=== PATIENT | male | born 1955 | race Caucasian/White ===

== ENCOUNTER 2020-10-16 16:36 | Observation (INO) | payer MEDICARE, MEDICAID, SELFPAY ==
[2020-10-16] VITALS (7 sets, daily range): BP systolic 137–183; BP diastolic 83–112; PULSE 76–130; RESP 16–18; TEMP 36.6–36.8; O2SAT 95–97; BMI 24.9
--- NOTE | ~2020-10-16 | CT_ITS ---
EXAMINATION: CT brain wo con DATE: 10/16/2020 17:45 INDICATION: Syncope post fall TECHNIQUE: Computed tomography (CT) of the head was performed without intravenous contrast. Sagittal and coronal reconstructions were performed. The mA was adjusted according to patient size. Iterative reconstruction technique was employed. The dose-length product was 605.33 mGy-cm. COMPARISON: None FINDINGS: No fracture. Encephalomalacia at the anterior aspect of the bilateral frontal lobes and anterior left temporal lobe which could represent sequela of chronic infarcts or trauma. No acute intracranial hem orrhage, acute infarction or abnormal extra axial fluid collection. There is mild scattered white mat ter hypoattenuation consistent with chronic small vessel ischemic disease. Ventricles are normal and symmetric. No mass/mass effect. The orbits, paranasal sinuses and right mastoid air cells are normal. That is post left mastoidectomy. The left external auditory canal is occluded IMPRESSION: 1. No fracture or acute intracranial process. 2. Encephalomalacia in the anterior bilateral frontal lobes and anterior left temporal lobe which cou ld represent sequela of prior infarcts or trauma. 3. Mild scattered white matter hypoattenuation consistent with chronic small vessel ischemic disease. Reviewed, dictated and finalized at location A. CTOR OF INFECTION CONTROL IMPRESSION: 1. No fracture or acute intracranial process. 2. Encephalomalacia in the anterior bilateral frontal lobes and anterior left t emporal lobe which could represent sequela of prior infarcts or trauma. 3. Mild scattered white matter hypoattenuation consistent with chronic small ve ssel ischemic disease.
--- NOTE | ~2020-10-16 | XR_ITS ---
EXAMINATION: XR thoracic spine 3V, XR lumbar spine 2-3V DATE: 10/16/2020 18:04 INDICATION: Generalized upper and lower back pain post fall TECHNIQUE: 1. AP, lateral and lateral swimmer's views of the thoracic spine were obtained. 2. AP, lateral and coned-down lateral lumbosacral views of the lumbar spine were obtained. COMPARISON: None. FINDINGS: Thoracic spine: Mild thoracic kyphosis. Chronic appearing mild anterior wedging at T8 and T10 and, both with approxim ately 20% anterior vertebral body height loss. Moderate disc height loss at multiple levels between T 2-T3 and T8-T9 as well as at T11-T12. Mild disc height loss at the remaining thoracic levels. Lumbar spine: 4 mm anterolisthesis L3 on L4. Lumbar vertebral body heights are normal. Moderate disc height loss at L3-L4. Mild disc height loss at L4-L5. Mild to moderate lower lumbar predominant facet osteoarthriti s. Sacral arches are intact. Mild bilateral sacral iliac osteoarthritis. IMPRESSION: 1. Age-indeterminate but chronic appearing T8 and T10 compression fractures with 20% anterior vertebr al body height loss. 2. Moderate thoracic and lumbar spondylosis. Reviewed, dictated and finalized at location A. TENANCE TRUCK DRIVER IMPRESSION: 1. Age-indeterminate but chronic appearing T8 and T10 compression fractures wit h 20% anterior vertebral body height loss. 2. Moderate thoracic and lumbar spondylosis.
--- NOTE | ~2020-10-16 | XR_ITS ---
EXAMINATION: XR chest 1V DATE: 10/16/2020 18:05 INDICATION: Syncope post fall TECHNIQUE: frontal view of the chest was obtained. COMPARISON: None FINDINGS: The lungs are clear with no focal airspace opacities, pulmonary edema, pleural effusion or pneumothor ax. The cardiomediastinal silhouette is normal. Mild to moderate degenerative skeletal changes in the spine and right glenohumeral joint. IMPRESSION: 1. No acute cardiopulmonary disease. Reviewed, dictated and finalized at location A. ICE CENTER REPRESENTATIVE
--- NOTE | ~2020-10-16 | US_ITS ---
EXAMINATION: US soft tissue head and neck DATE: 10/17/2020 12:52 INDICATION: Anterior neck lipoma TECHNIQUE: Multiple grayscale and Doppler ultrasound images of the region of concern at the anterior neck were obtained. COMPARISON: CT dated 10/16/2020 FINDINGS: Large soft tissue mass centered just to the right of midline at the anterior neck which is larger sheryl n the field of view of imaging by ultrasound, which is >7 cm in AP and medial to lateral dimensions. The mass measures up to 3.3 cm in maximal thickness. This corresponds in approximate size and locatio n to the large lipoma seen at the anterior neck on prior CT. IMPRESSION: 1. Large mass centered just to the right of midline at the anterior neck corresponding to a 9.1 x 7.4 x 3.8 cm lipoma on prior CT . Reviewed, dictated and finalized at location A. IRATORY EQUIPMENT ASSISTANT IMPRESSION: 1. Large mass centered just to the right of midline at the anterior neck corres ponding to a 9.1 x 7.4 x 3.8 cm lipoma on prior CT .
--- NOTE | ~2020-10-16 | CT_ITS ---
EXAMINATION: CT cervical spine wo con DATE: 10/16/2020 17:45 INDICATION: Fall with syncope, headache and neck pain TECHNIQUE: Computed tomography (CT) of the cervical spine was performed without intravenous contrast. Automated exposure control and iterative reconstruction technique were employed. The dose-length pro duct was 429.68 mGy-cm. COMPARISON: None FINDINGS: Alignment is normal. Vertebral body heights are normal. No fractures. Moderate disc height loss at C4 -C5, C5-C6 and C6-C7. Mild disc height loss at C3-C4 and T1-T2. Combination of disc bulges and computer technical specialist ior disc osteophyte complexes resulting in mild central canal stenosis from C3-C4 through C6-C7. Meghan re facet osteoarthritis resulting in moderate central canal stenosis on the left at C3-C4. Mild neura l foraminal stenosis at additional levels on the left and right resulting from a severe uncovertebral and facet osteoarthritis. Atherosclerotic calcification is at the bilateral carotid bulbs. 9.1 x 3.8 x 7.4 cm macroscopic fat attenuation lipoma in the anterior neck. The underlying thyroid gland is un remarkable. Visualized airway and apices of lungs are clear. IMPRESSION: 1. Moderate cervical spondylosis. No acute osseous abnormality. 2. 9.1 x 3.8 x 7.4 cm lipoma at the anterior neck. Reviewed, dictated and finalized at location A. L PRESS OPERATOR
--- NOTE | 2020-10-16 17:01 | ECG_ITS ---
Measurements Intervals [place] Rate: 122 P: 19 OR: 155 QRS: 11 QRSD: 101 T: 29 QT: 307 QTc: 439 Interpretive Statements SINUS TACHYCARDIA DELAYED PRECORDIAL R/S TRANSITION BORDERLINE ST-T WAVE ABNORMALITY- INF/HIGH LAT LEADS ABNORMAL ECG Electronically Signed On 10-16-2020 20:55:50 STEM ROLLER OR CRUSHER OPERATOR by Darius Zapata D.O.
--- NOTE | 2020-10-16 17:14 | ED.GENADULT ---
HPI - General Adult General Chief complaint: Fall Stated complaint: fall -back pain Time Seen by Provider: 10/16/20 16:47 Source: patient and family Limitations: no limitations History of Present Illness HPI narrative: Patient 64 years old white male presented to the ED with syncope. Patient lives alone, working in the kitchen, woke up on the floor. Was confused, tried to get up and was unsteady, his daughter called him on the phone at that time and found the patient is confused and disoriented. She is telling me patient usually get seizure and can have similar confusion and disorientation like this. Currently patient complaining of headache, neck pain, back pain. He denies any fever, chills, nausea, vomiting, COVID-19 infection or exposure to anybody with COVID-19. 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 Patient does not take medicine at home. Last seizure possible months ago, last time was seen by a physician years ago, history of goiter which is getting bigger, patient's daughter telling me that patient had history of absent seizure which usually does not blackout with it. Patient is telling me, sometimes he blacked out with seizure.. Patient is telling me that if his daughter did not call him, he would not come to the emergency room.. Related Data Home Medications Medication Instructions Recorded Confirmed No Home Medications 10/16/20 10/16/20 Allergies Allergy/AdvReac Type Severity Reaction Status Date / Time No Known Allergies Allergy Verified 10/16/20 16:58 Review of Systems Review of Systems: Narrative: CONSTITUTIONAL: Denies fever, chills, or sweats. EYES: Denies visual changes, redness, or discharge. ENT: Denies rhinorrhea, congestion, sore throat, or otalgia. CARDIOVASCULAR: Denies chest pain, palpitations, or edema. RESPIRATORY: Denies cough or dyspnea. GASTROINTESTINAL: Denies abdominal pain, nausea, vomiting, or diarrhea. GENITOURINARY: Denies dysuria or hematuria. SKIN: Denies rash or itching. MUSCULOSKELETAL: Denies back pain, joint pain, or myalgia. NEUROLOGIC: Denies headache, numbness, or weakness. PSYCHIATRIC: Denies anxiety or depression. [facility] Past Medical History Medical History (Updated 10/16/20 @ 17:28 by Dennis Fernandez MD) Goiter Social History Social History (Updated 10/16/20 @ 17:24 by Dennis Fernandez MD) Social History: Patient smokes, uses marijuana, denies drinking Smoking status: Current every day smoker Exam Narrative: Exam Narrative: General appearance: Well-developed, well-nourished Skin: Normal color Head: Normocephalic, nontraumatic Eyes: Clear conjunctiva ENT: Oropharynx normal, ears normal, nose normal, large neck mass anteriorly, firm in consistency Neck: Supple, nontender Chest and respiratory: Airway patent, no respiratory distress, no accessory muscle use Heart: Regular rate/rhythm Abdomen: Soft, nontender, no organomegaly, quiet bowel sounds Vascular: Normal peripheral pulses, normal capillary refill. Musculoskeletal: Severe pain along the thoracic and lumbar spine, no bruises, no deformity. Neurologic: Alert and oriented ?3, ARMATURE VARNISHER is normal as tested, no gross motor deficit Course Course Emergency Course: Stable Consultations Consultation #1: Dr. Pinon Date: 10/16/20 Time: 18:39 Vital Signs Vital signs: Vital Signs Temperature 36.6 C 10/16/20 16:32 Pulse Rate 120 H 10/16/20 16:32 Respiratory Rate 18 10/16/20 16:32 Blood Pressure 183/112 H 10/16/20 16:32 Pulse Oximetry 95 10/16/20 16:32 Temperature 36.6 C 10/16/20 16:32 Puls
[2020-10-16 17:38] LABS: Basophils Absolute Auto 0.1 K/mm3 (0.0-0.1); Basophils Percent Auto 0.4 % (0.2-1.2); Eosinophils Percent Auto 0.2 % (0-4.4); Hematocrit 46.2 % (42.0-52.0); Hemoglobin 15.7 g/dL (14.0-18.0); Immature Granulocyte Absolute 0.08 K/mm3 (0.00-0.031); Immature Granulocyte Percent A 0.6 % (0-0.5); Lymphocytes Absolute Auto 1.21 K/mm3 (0.9-3.2); Lymphocytes Percent Auto 8.3 % (18.3-44.2); Mean Corpuscular Volume 91.3 fl (80-100); Mean Platelet Volume 9.5 fl (7.4-10.4); Monocytes Percent Auto 6.8 % (2.6-8.5); Neutrophils Absolute Auto 12.1 K/mm3 (1.3-6.7); Neutrophils Percent Auto 83.7 % (45.5-73.1); Platelet Count Result 295 k/mm3 (150-375); Red Blood Count 5.06 M/mm3 (4.6-6.20); Red Cell Distribution Width 13.2 % (11.5-14.5); White Blood Count 14.5 K/mm3 (4.5-10.0)
[2020-10-16 17:46] LABS: Partial Thromboplastin Time 21.3 SECONDS (22.3-36.8)
[2020-10-16 17:50] LABS: INR 0.9; Prothrombin Time 12.8 Seconds (11.1-14.7)
[2020-10-16 17:52] LABS: Alanine Aminotransferase 42 U/L (4-50); Albumin Level 4.4 g/dL (3.5-5.1); Alkaline Phosphatase 60 U/L (38-126); Anion Gap 9 mmol/L (8-16); Aspartate Amino Transferase 42 U/L (17-59); Bilirubin,Total 0.4 mg/dL (0.2-1.3); Blood Urea Nitrogen 18 mg/dL (9-20); Calcium 9.3 mg/dL (8.4-10.2); Carbon Dioxide 25 mmol/L (22-30); Chloride 104 mmol/L (98-107); Estimated CRCL calculation 85 ml/min; Estimated Glomerular Filt Rate > 60; Glucose 216 mg/dL (75-110); Magnesium 2.3 mg/dL (1.6-2.3); Potassium 3.9 mmol/L (3.4-5.0); Sodium 138 mmol/L (137-145)
[2020-10-16 18:03] LABS: Troponin I 0.014 ng/mL (0.000-0.034)
[2020-10-16] MEDS: levETIRAcetam 1000MG/NACL100ML 1,000 MG/100 ML BAG 400 MG IVPB (18:15)
[2020-10-16] MEDS: ONDANSETRON INJ 4 MG/2 ML VIAL IV PUSH (18:20)
[2020-10-16] MEDS: MORPHINE SULFATE (*CRX) 4 MG/ML INJ IV PUSH (18:20)
[2020-10-16 18:31] LABS: Add Urine Microscopic? YES; Appearance Urine Cloudy (Clear); Bilirubin Urine Negative (Negative); Blood Urine Negative (Negative); Color Urine Yellow (Yellow); Glucose Urine UA 1+ mg/dL (Negative); Hyaline Casts Urine 20-29 /lpf; Ketones Urine Negative (Negative); Leukocyte Esterase Ur Negative LEU/UL (Negative); Mucus Urine Rare /lpf; Nitrate Urine Negative (Negative); Protein Urine 1+ mg/dL (Negative); RBC Urine 0-2 /hpf (0-2); Specific Grav Ur 1.018 (1.001-1.035); Urobilinogen Urine Negative mg/dL (<2.0)
[2020-10-16 18:43] LABS: Amphetamine Screen Urine Negative (Negative); Barbiturate Screen Urine Negative (Negative); Benzodiazepines Screen Urine Negative (Negative); Cannabinoid Screen Urine Positive (Negative); Cocaine Screen Urine Negative (Negative); Methadone Screen Urine Negative (Negative); Opiate Screen Urine Negative (Negative); Phencyclidine Screen Urine Negative (Negative)
--- NOTE | 2020-10-16 21:05 | PM.IMHP ---
H&P: HPI History of Present Illness Date/Time: 10/16/20 21:05 Chief Complaint: Acute syncope Narrative: This is a pleasant 64 year old male with known seizure disorder who presented to the hospital today after passing out in his kitchen. The patient believes that he suffered a grand mal seizure today while standing in his kitchen. He remembers hitting his back on the sink and then passing out. He denies any tongue biting as he has no teeth but did lose urine. He commonly has absence seizures every month or so and is not on any antiepileptic medications. The patient has had URI symptoms recently and believes that he has had sinusitis. He does not take any home medications. Today he denies any headache, neck pain, blurry vision, double vision, chest pain, shortness of breath, coughing, nausea, vomiting, abdominal pain, dysuria, hematuria, diarrhea, rectal bleeding, numbness, tingling, or focal weakness. He is known to have epilepsy since having decompression surgery of his left seventh cranial nerve in 1975. The patient was evaluated in the ER tonight and Brain CT was negative for any acute intracranial pathology. ER provider has consulted Neurology, Dr. Pinon and the patient has been loaded with IV Keppra. Review of Systems Review of Systems: All systems reviewed & are unremarkable except as noted in HPI and below PMFSH Past Medical History Medical History Compression fracture of T10 vertebra Compression fracture of T8 vertebra Goiter History of absence seizures Surgical History Surgical History H/O brain surgery Social History Social History Social History: Patient smokes, uses marijuana, denies drinking Smoking packs per day: 1 Smoking cigarettes per day: 20.0 Years smoked: 45 Smoking pack-years: 45.00 Smoking status: Current some day smoker Tobacco type: cigarettes Alcohol intake: never Substance use: never Substance use type: does not use Gender identity (if verbalized by the patient): Male Spiritual care concerns: No Meds Home Medications and Allergies Home Medications Medication Instructions Recorded Confirmed Type levetiracetam 500 mg PO Q12H 90 Days #180 tablet 10/17/20 Rx tramadol 50 mg PO Q6H PRN #10 tablet 10/17/20 Rx Allergies Allergy/AdvReac Type Severity Reaction Status Date / Time No Known Allergies Allergy Verified 10/16/20 16:58 Vital Signs Vital Signs - 24 hr 10/16/20 16:32 10/16/20 17:28 10/16/20 18:15 Temperature 36.6 C Pulse Rate 120 H 130 H 117 H Respiratory Rate 18 18 Blood Pressure 183/112 H 158/105 H 168/106 H Pulse Oximetry 95 96 10/16/20 18:50 10/16/20 20:05 Temperature 36.6 C Pulse Rate 94 Respiratory Rate 18 Blood Pressure 161/93 H Pulse Oximetry 95 Exam Const: General: cooperative, no acute distress, alert and awake Nutritional Appearance: well nourished Orientation/consciousness: patient oriented x3 HENMT: Head: normal to inspection General nose exam: Normal external nose present Face and sinus: normal facial exam Mouth: Yes Normal oral and palatal mucosa present and Yes oropharynx normal Eyes: Pupils: Equal, round and reactive pupils present EOM: EOMs intact bilaterally Neck: Neck: supple and no JVD Thyroid: diffusely enlarged Lymphatic: lymphadenopathy not noted Resp: Effort & Inspection: normal respiratory effort Auscultation: clear to auscultation bilaterally Cardio: Rate: regular rate Rhythm: regular rhythm Heart sounds: no murmurs GI: Inspection: normal to inspection Auscultation: normal bowel sounds Skin: General skin exam: normal color and no rashes or lesions noted Neuro: General: patient oriented x3 Cranial nerves: Yes CN's II-XII intact bilaterally and Yes Equal, round and reactive pupils present Speech: normal speech Motor exa
--- NOTE | 2020-10-16 22:08 | ADMGEN ---
This patient, Jason Washington, was admitted to 2 Medical Room 256-. Patient/family oriented to hospital policies and general routines including ID bracelet, bed and alarms, visiting hours, pain management, procedures, bathroom and other care routines, personal items, smoking policy, room service/diet, and visiting hours. Information on how to activate the Rapid Response Team has been discussed. Patient/Family are encouraged to report perceived risks to care and to ask questions if they do not understand what they are told or what they should do.
[2020-10-17] VITALS: PULSE 68
[2020-10-17] MEDS: SODIUM CHLORIDE 0.9% IV 1,000 ML 100 ML IV CONT ×2 (01:50→11:48)
[2020-10-17 04:00] VITALS: PULSE 63
[2020-10-17 05:40] VITALS: BP 133/67; PULSE 72; RESP 16; TEMP 36.5; O2SAT 96
[2020-10-17 05:54] LABS: Basophils Absolute Auto 0.1 K/mm3 (0.0-0.1); Basophils Percent Auto 0.7 % (0.2-1.2); Eosinophils Absolute Auto 0.2 K/mm3 (0-0.3); Eosinophils Percent Auto 1.5 % (0-4.4); Hematocrit 42.6 % (42.0-52.0); Immature Granulocyte Absolute 0.04 K/mm3 (0.00-0.031); Immature Granulocyte Percent A 0.4 % (0-0.5); Lymphocytes Percent Auto 25.9 % (18.3-44.2); Mean Corpuscular HGB Conc 32.9 g/dl (32-36); Mean Corpuscular Hemoglobin 30.7 pg (26-34); Mean Corpuscular Volume 93.4 fl (80-100); Mean Platelet Volume 9.2 fl (7.4-10.4); Monocytes Absolute Auto 0.9 K/mm3 (0.1-0.6); Monocytes Percent Auto 8.5 % (2.6-8.5); Neutrophils Absolute Auto 6.6 K/mm3 (1.3-6.7); Platelet Count Result 249 k/mm3 (150-375); Red Blood Count 4.56 M/mm3 (4.6-6.20); Red Cell Distribution Width 13.6 % (11.5-14.5); White Blood Count 10.4 K/mm3 (4.5-10.0)
[2020-10-17 06:08] LABS: Anion Gap 3 mmol/L (8-16); Blood Urea Nitrogen 14 mg/dL (9-20); Calcium 8.7 mg/dL (8.4-10.2); Carbon Dioxide 32 mmol/L (22-30); Chloride 106 mmol/L (98-107); Estimated CRCL calculation 69 ml/min; Estimated Glomerular Filt Rate > 60; Glucose 87 mg/dL (75-110); Magnesium 2.3 mg/dL (1.6-2.3); Sodium 141 mmol/L (137-145)
[2020-10-17 07:47] LABS: Creatine Kinase 424 U/L (55-170)
[2020-10-17] MEDS: ACETAMINOPHEN 325 MG TABLET 650 MG PO (07:50)
[2020-10-17 07:55] VITALS: PULSE 76
[2020-10-17] MEDS: traMADol HCL (*CRX) 50 MG TABLET PO (11:48)
[2020-10-17 12:00] VITALS: PULSE 66
--- NOTE | 2020-10-17 12:30 | PC.NURSE ---
To Radiology per stretcher.
--- NOTE | 2020-10-17 12:44 | PM.DS ---
DS: Admitting Diagnosis Admitting Diagnosis Admitting Diagnosis: Syncope, likely seizure DS: Discharge Diagnosis Discharge Diagnosis (1) History of absence seizures: Code(s): Z86.69 - Personal history of other diseases of the nervous system and sense organs Status: Acute Assessment and Plan: Patient had episode of syncope/collapse. Patient was on antiepileptics at one time, but stopped taking these as they were not preventing seizures. Prior to arrival, had episode of loss of consciousness and felt he may have had a seizure as his daughter coincidentally called just after the episode and was in a postictal state similar to previous seizures. He notes having history of both absence and grand mal seizures but can usually tell if he has had a grand mal seizure as he will have muscle soreness afterwards which he has none this stay. He does not remember losing consciousness and was confused for several minutes afterwards while talking on the phone with his daughter; this slowly improved over time. No complaints at the moment. He was given a loading dose of Keppra in the ED. Dr. Pinon consulted and appreciate input; will await further rec from Neurology Follow up with Neurologist and Dr. Pinon No driving, baths, swimming (2) Uncontrolled hypertension: Code(s): I10 - Essential (primary) hypertension Status: Acute Assessment and Plan: BP elevated on arrival, but has improved to 130s sys this morning without medication. Not on any antihypertensives at home Follow up with PCP (3) Compression fracture of T10 vertebra: Code(s): S22.070A - Wedge compression fracture of T9-T10 vertebra, initial encounter for closed fracture Status: Acute Assessment and Plan: Age indeterminate but chronic appearing T8 and T10 compression fractures on xray imaging; no acute findings. He is having some 10/10 back pain this morning, relieved by tramadol. Pain also possible due to recent fall as well Will do pain control with Tylenol and tramadol as needed for breakthrough/severe pain F/u with PCP (4) Compression fracture of T8 vertebra: Code(s): S22.060A - Wedge compression fracture of T7-T8 vertebra, initial encounter for closed fracture Status: Acute Assessment and Plan: Please see above a/p (5) Lipoma: Code(s): D17.9 - Benign lipomatous neoplasm, unspecified Status: Acute Assessment and Plan: Patient has been told he has a goiter in the past, however, CT imaging of cervical spine showed a 9.1 x 3.8 x 7.4 cm lipoma at the anterior neck overlying an unremarkable thyroid gland. TSH WNL. Soft tissue of neck ordered by heating and cooling technician and is pending to be read Follow up with PCP after discharge DS: Summary Hospital Course Reason for hospitalization: Syncope, likely Seizure Hospital Course: Date of arrival: 10/16/20 Date of discharge: 10/17/20 Patient is a 64 year old male with known seizure disorder who presented to the hospital today after passing out in his kitchen. The patient believes that he suffered a seizure today while standing in his kitchen. While in the ED, Head CT and cervical spine Ct were unremarkable for acute findings. Dr. Pinon was consulted from ED and recommended loading dose of Keppra. Further imaging was unrmarkable for acute findings, but chronic T8 and T10 compression fractures were noted on xray imaging Patient admitted under this setting. Please see H&P for further details. Patient was admitted to the hospitalist service for further management/treatment. Patient had some back pain that was relieved by Tramadol; a short course was provided at discharge. Patient was evaluated by Dr. Pinon who recommended patient be discharged on Keppra twice daily at discharge.
--- NOTE | 2020-10-17 13:20 | WPDNEURCNPN ---
Assessment and Plan Assessment and plan (1) Lipoma: Code(s): D17.9 - Benign lipomatous neoplasm, unspecified Status: Acute (2) Compression fracture of T8 vertebra: Code(s): S22.060A - Wedge compression fracture of T7-T8 vertebra, initial encounter for closed fracture Status: Acute (3) Compression fracture of T10 vertebra: Code(s): S22.070A - Wedge compression fracture of T9-T10 vertebra, initial encounter for closed fracture Status: Acute (4) Uncontrolled hypertension: Code(s): I10 - Essential (primary) hypertension Status: Acute (5) Syncope and collapse: Code(s): R55 - Syncope and collapse Status: Acute (6) Goiter: Code(s): E04.9 - Nontoxic goiter, unspecified Status: Acute (7) Seizure disorder, complex partial: Code(s): G40.209 - Localization-related (focal) (partial) symptomatic epilepsy and epileptic syndromes with complex partial seizures, not intractable, without status epilepticus Status: Acute Additional Plan localization-related seizure disorder with secondary generalization which definitely benefit with continuation of the anticonvulsants and regular follow-up at this particular trying not to drive until released by the physician in the of on follow-up Consult date: 10/17/20 Time Seen: 13:00 HPI: Jason Washington is a 65 year old male has been admitted to the hospital after passing out in his kitchen and observation of grand mal seizure. Member hitting his back on the sink and then passing out but there was no tongue biting no incontinence of bowel or bladder. Patient reportedly having recurrent absence seizures and has not been taking any anti epileptic medication he is known to have seizure disorder since decompression surgery for left 7th cranial [place] [address] scan of the head was negative but he was loaded with Keppra intravenously in the emergency room, patient does have a history of 45 smoking pack years with 20 cigarettes per day and currently smoking but no history of alcohol use, he was noted to be afebrile but tachycardiac. CT of the head documented encephalomalacia in the anterior bilateral frontal lobes and anterior left temporal lobe with the history of previous trauma, chronic T8 and T10 compression fracture with 20% anterior vertebral body height loss and moderate thoracic and lumbar spondylosis along with anterolisthesis of L3 on L4, moderate cervical spondylosis and 9.1x3.8x7.4cm lipoma at the anterior neck., Negative chest x-ray, routine lab not significant except positive for cannabinoids screen, loaded with Keppra 1000 mg in the ER also receiving hydralazine 10 mg IV Q 8 hours p.r.n. and tramadol 50 mg p.r.n. Review of Systems Review of Systems: All systems reviewed & are unremarkable except as noted in HPI and below PMFSH Past Medical History Medical History Compression fracture of T10 vertebra Compression fracture of T8 vertebra Goiter History of absence seizures Surgical History Surgical History H/O brain surgery Social History Social History Social History: Patient smokes, uses marijuana, denies drinking Smoking packs per day: 1 Smoking cigarettes per day: 20.0 Years smoked: 45 Smoking pack-years: 45.00 Smoking status: Current some day smoker Tobacco type: cigarettes Alcohol intake: never Substance use: never Substance use type: does not use Gender identity (if verbalized by the patient): Male Spiritual care concerns: No Meds Home Medications and Allergies Home Medications Medication Instructions Recorded Confirmed Type No Home Medications 10/16/20 10/16/20 History tramadol 50 mg PO Q6H PRN #10 tablet 10/17/20 Rx Allergies Allergy/AdvReac Type Severity Reaction Status Date / Time No Known A
[2020-10-17 14:00] VITALS: BP 118/60; PULSE 70; RESP 18; TEMP 36.4; O2SAT 100
== END 2020-10-17 15:30 | disposition home or self-care (01) ==
LOC: ANHED 17:49 → ANH2MED 20:46
PROVIDERS: Family Medicine; Physician Assistant; Admitting Provider Family Medicine; Emergency Provider Emergency Medicine; Visit Provider Internal Medicine
DX: R55 Syncope and collapse (principal); G40.909 Epilepsy, unspecified, not intractable, without status epilepticus; M47.815 Spondylosis without myelopathy or radiculopathy, thoracolumbar region; M48.54XA Collapsed vertebra, not elsewhere classified, thoracic region, initial encounter for fracture; M47.812 Spondylosis without myelopathy or radiculopathy, cervical region; D17.9 Benign lipomatous neoplasm, unspecified; I10 Essential (primary) hypertension; F17.210 Nicotine dependence, cigarettes, uncomplicated
CPT/HCPCS: 36415; 70450; 71045; 72072; 72100; 72125; 76536; 80048; 80053; 80307; 81001; 82550; 83735; 84443; 84484; 85025; 85610; 85730; 93005; 96361; 96365; 96375; 99285; A9270; G0378; J1953; J2270; J2405; J7030